=== PATIENT | male | born 1955 | race Caucasian/White ===

== ENCOUNTER 2020-05-22 21:03 | Emergency (ER) | payer OTHER ==
[~2020-05-22] VITALS: Ht 175.3 cm; Wt 149.7 kg
[2020-05-22] MEDS ORDERED: IBUP800 PO (21:16)
[2020-05-22 21:38] LABS: BASOPHILS ABSOLUTE AUTO 0.03 K/mm3 (0.00-0.23); BASOPHILS PERCENT AUTO 1 % (0-2); EOSINOPHILS ABSOLUTE AUTO 0.19 K/mm3 (0.00-0.68); EOSINOPHILS PERCENT AUTO 3 % (0-6); Hematocrit 45.4 % (37.0-53.0); Hemoglobin 15.2 g/dL (13.5-17.5); IMMATURE GRAN ABSOLUTE AUTO 0.01 K/mm3 (0.00-0.10); IMMATURE GRAN PERCENT AUTO 0 % (0-1); LYMPHOCYTES ABSOLUTE AUTO 1.94 K/mm3 (0.84-5.20); LYMPHOCYTES PERCENT AUTO 32 % (21-46); MONOCYTES ABSOLUTE AUTO 0.62 K/mm3 (0.16-1.47); MONOCYTES PERCENT AUTO 10 % (4-13); Mean Corpuscular HGB 30.3 pg (26.0-34.0); Mean Corpuscular HGB Conc 33.5 g/dL (31.5-36.5); Mean Corpuscular Volume 91 fL (80-100); NEUTROPHILS ABSOLUTE AUTO 3.23 K/mm3 (1.96-9.15); NEUTROPHILS PERCENT AUTO 54 % (41-73); Platelet Count 180 K/mm3 (150-400); RDW Coefficient Variation 12.9 % (11.7-14.2); RDW Standard Deviation 42.5 fL (35.1-46.3); Red Blood Cell Count 5.01 M/mm3 (4.30-5.90); White Blood Cell Count 6.02 K/mm3 (4.00-11.30)
[2020-05-22 21:52] LABS: Alanine Aminotransfer (ALT/SGP 18 U/L (12-78); Albumin, Blood 3.7 g/dL (3.4-5.0); Alk Phos 97 U/L (50-136); Anion Gap 7 mmol/L (6-16); Aspartate Aminotrans (AST/SGOT 16 U/L (12-37); Bilirubin, Total 0.5 mg/dL (0.1-1.0); Blood Urea Nitrogen 30 mg/dL (8-24); CO2, Blood 28 mmol/L (21-32); Calcium, Blood 9.2 mg/dL (8.5-10.1); Chloride, Blood 105 mmol/L (98-108); Creatinine, Blood 1.11 mg/dL (0.60-1.20); Globulin, Blood 3.8 g/dL (2.2-4.0); Glomerular Filtration Rate >60 (60-); Glucose, Blood 117 mg/dL (70-99); Potassium, Blood 3.5 mmol/L (3.5-5.5); Sodium, Blood 140 mmol/L (136-145); Total Protein, Blood 7.5 g/dL (6.4-8.2); Troponin I 0.016 ng/mL (0.000-0.040)
== END 2020-05-23 01:20 | disposition home or self-care (01) ==
LOC: ER 21:03
PROVIDERS: Emergency Medicine
DX: R07.9 Chest pain, unspecified (principal); I10 Essential (primary) hypertension; I25.2 Old myocardial infarction; Z86.73 Personal history of transient ischemic attack (TIA), and cerebral infarction without residual deficits
CPT/HCPCS: 71046; 80053; 83880; 84484; 85025; 93005; 93010; 99285-25

== ENCOUNTER 2022-02-03 13:02 | Inpatient (IN) | payer OTHER ==
[~2022-02-03] VITALS: Ht 172.7 cm; Wt 148.8 kg
[~2022-02-03 13:02] MED LIST: IBUP800 PO
[2022-02-03] MEDS ORDERED: AMLO10 PO (13:34)
[2022-02-03] MEDS ORDERED: ACET500 PO (13:34)
[2022-02-03] MEDS ORDERED: ALBU2.5V5 INH (13:34)
[2022-02-03] MEDS ORDERED: ASPI81CH PO (13:35)
[2022-02-03] MEDS ORDERED: ARNUITY ELLIP100 MCG IH (13:36)
[2022-02-03] MEDS ORDERED: GABA300 PO (13:36)
[2022-02-03] MEDS ORDERED: HYDR10 PO (13:37)
[2022-02-03] MEDS ORDERED: HYDCHL25 PO (13:37)
[2022-02-03] MEDS ORDERED: METO50ER PO (13:38)
[2022-02-03] MEDS ORDERED: LISI20 PO (13:38)
[2022-02-03] MEDS ORDERED: ROSU10TA PO (13:38)
[2022-02-03 13:54] LABS: BASOPHILS ABSOLUTE AUTO 0.03 K/mm3 (0.00-0.23); BASOPHILS PERCENT AUTO 1 % (0-2); EOSINOPHILS ABSOLUTE AUTO 0.12 K/mm3 (0.00-0.68); EOSINOPHILS PERCENT AUTO 3 % (0-6); Hematocrit 44.1 % (37.0-53.0); IMMATURE GRAN ABSOLUTE AUTO 0.01 K/mm3 (0.00-0.10); IMMATURE GRAN PERCENT AUTO 0 % (0-1); LYMPHOCYTES ABSOLUTE AUTO 0.75 K/mm3 (0.84-5.20); LYMPHOCYTES PERCENT AUTO 16 % (21-46); MONOCYTES ABSOLUTE AUTO 0.48 K/mm3 (0.16-1.47); MONOCYTES PERCENT AUTO 10 % (4-13); Mean Corpuscular HGB 30.4 pg (26.0-34.0); Mean Corpuscular Volume 90 fL (80-100); Mean Platelet Volume 11.2 fL (9.1-12.4); NEUTROPHILS PERCENT AUTO 71 % (41-73); Platelet Count 169 K/mm3 (150-400); RDW Coefficient Variation 12.7 % (11.7-14.2); RDW Standard Deviation 41.9 fL (35.1-46.3); Red Blood Cell Count 4.93 M/mm3 (4.30-5.90); White Blood Cell Count 4.79 K/mm3 (4.00-11.30)
[2022-02-03 14:00] LABS: Albumin, Blood 3.2 g/dL (3.4-5.0); Albumin/Globulin Ratio 0.8 (0.8-1.8); Bilirubin, Total 0.5 mg/dL (0.1-1.0); Bun/Creatinine Ratio 25.7 (12.0-20.0); Calcium, Blood 8.7 mg/dL (8.5-10.1); Creatinine, Blood 1.09 mg/dL (0.60-1.20); Globulin, Blood 3.8 g/dL (2.2-4.0); Potassium, Blood 4.1 mmol/L (3.5-5.5)
[2022-02-04 03:34] LABS: BASOPHILS ABSOLUTE AUTO 0.02 K/mm3 (0.00-0.23); BASOPHILS PERCENT AUTO 1 % (0-2); EOSINOPHILS PERCENT AUTO 5 % (0-6); Hematocrit 41.9 % (37.0-53.0); Hemoglobin 13.9 g/dL (13.5-17.5); IMMATURE GRAN ABSOLUTE AUTO 0.01 K/mm3 (0.00-0.10); IMMATURE GRAN PERCENT AUTO 0 % (0-1); LYMPHOCYTES ABSOLUTE AUTO 0.86 K/mm3 (0.84-5.20); LYMPHOCYTES PERCENT AUTO 19 % (21-46); MONOCYTES ABSOLUTE AUTO 0.75 K/mm3 (0.16-1.47); MONOCYTES PERCENT AUTO 17 % (4-13); Mean Corpuscular HGB 30.5 pg (26.0-34.0); Mean Corpuscular HGB Conc 33.2 g/dL (31.5-36.5); Mean Corpuscular Volume 92 fL (80-100); Mean Platelet Volume 11.2 fL (9.1-12.4); NEUTROPHILS ABSOLUTE AUTO 2.59 K/mm3 (1.96-9.15); NEUTROPHILS PERCENT AUTO 59 % (41-73); Platelet Count 151 K/mm3 (150-400); RDW Coefficient Variation 12.8 % (11.7-14.2); RDW Standard Deviation 42.8 fL (35.1-46.3); Red Blood Cell Count 4.56 M/mm3 (4.30-5.90); White Blood Cell Count 4.43 K/mm3 (4.00-11.30)
[2022-02-04 03:57] LABS: Anion Gap 6 mmol/L (6-16); Blood Urea Nitrogen 30 mg/dL (8-24); CHOL/HDL RATIO 4.6; CO2, Blood 26 mmol/L (21-32); Calcium, Blood 8.8 mg/dL (8.5-10.1); Chloride, Blood 107 mmol/L (98-108); Cholesterol 128 mg/dL (50-200); Creatinine, Blood 1.07 mg/dL (0.60-1.20); Glomerular Filtration Rate 76 (60-); Glucose, Blood 114 mg/dL (70-99); HDL Cholesterol 28 mg/dL (>39); LDL/HDL RATIO 2.3; Low Density Lipoprotein Chol 63 mg/dL (0-110); Potassium, Blood 3.9 mmol/L (3.5-5.5); Sodium, Blood 139 mmol/L (136-145); Triglycerides 184 mg/dL (30-160); Very Low Density Lipoprot Chol 37 mg/dL (6-32)
[2022-02-04] MEDS ORDERED: ATOR40TA PO (11:01)
[2022-02-04] MEDS ORDERED: CLOP75 PO (11:09)
== END 2022-02-04 11:25 | disposition home or self-care (01) | DRG 247 ==
LOC: ER 13:02 → ICUW 15:33
PROVIDERS: Student in an Organized Health Care Education/Training Program; ADMIT Internal Medicine Cardiovascular Disease
PROC: 027034Z Dilation of Coronary Artery, One Artery with Drug-eluting Intraluminal Device, Percutaneous Approach (ICD-10-PCS; principal; 2022-02-03)
PROC: B2111ZZ Fluoroscopy of Multiple Coronary Arteries using Low Osmolar Contrast (ICD-10-PCS; 2022-02-03)
DX: I21.4 Non-ST elevation (NSTEMI) myocardial infarction (principal); Z68.42 Body mass index [BMI] 45.0-49.9, adult; E78.5 Hyperlipidemia, unspecified; I25.10 Atherosclerotic heart disease of native coronary artery without angina pectoris; I10 Essential (primary) hypertension; E66.01 Morbid (severe) obesity due to excess calories; Z95.5 Presence of coronary angioplasty implant and graft; Z86.73 Personal history of transient ischemic attack (TIA), and cerebral infarction without residual deficits; Z98.890 Other specified postprocedural states; Z79.51 Long term (current) use of inhaled steroids; Z79.82 Long term (current) use of aspirin; Z79.899 Other long term (current) drug therapy
CPT/HCPCS: 37236; 71046; 76937; 80048; 80053; 80061; 83880; 84484; 85025; 85347; 93005; 93010; 93306; 94660; 96374; 99152; 99153; 99285-25; A9270; C1725; C1769; C1874; C1887; C1894; J1644; J2250; J2270; J3010; J7030; J7040; Q9967

== ENCOUNTER 2022-02-09 16:22 | Inpatient (IN) | payer OTHER ==
[~2022-02-09] VITALS: Ht 177.8 cm; Wt 142.1 kg
[~2022-02-09 16:22] MED LIST changes: +ACET500 PO; +ALBU2.5V5 INH; +AMLO10 PO; +ARNUITY ELLIP100 MCG IH; +ASPI81CH PO; +ATOR40TA PO; +CLOP75 PO; +GABA300 PO; +HYDCHL25 PO; +HYDR10 PO; +LISI20 PO; +METO50ER PO; +ROSU10TA PO
[2022-02-09 17:04] LABS: BASOPHILS ABSOLUTE AUTO 0.04 K/mm3 (0.00-0.23); BASOPHILS PERCENT AUTO 0 % (0-2); EOSINOPHILS ABSOLUTE AUTO 0.01 K/mm3 (0.00-0.68); EOSINOPHILS PERCENT AUTO 0 % (0-6); Hematocrit 43.1 % (37.0-53.0); Hemoglobin 14.3 g/dL (13.5-17.5); IMMATURE GRAN ABSOLUTE AUTO 0.49 K/mm3 (0.00-0.10); IMMATURE GRAN PERCENT AUTO 2 % (0-1); LYMPHOCYTES ABSOLUTE AUTO 0.75 K/mm3 (0.84-5.20); LYMPHOCYTES PERCENT AUTO 3 % (21-46); MONOCYTES ABSOLUTE AUTO 1.84 K/mm3 (0.16-1.47); MONOCYTES PERCENT AUTO 7 % (4-13); Mean Corpuscular HGB Conc 33.2 g/dL (31.5-36.5); Mean Corpuscular Volume 90 fL (80-100); Mean Platelet Volume 10.8 fL (9.1-12.4); NEUTROPHILS ABSOLUTE AUTO 23.74 K/mm3 (1.96-9.15); NEUTROPHILS PERCENT AUTO 89 % (41-73); Platelet Count 190 K/mm3 (150-400); RDW Coefficient Variation 12.6 % (11.7-14.2); RDW Standard Deviation 41.6 fL (35.1-46.3); Red Blood Cell Count 4.77 M/mm3 (4.30-5.90); White Blood Cell Count 26.87 K/mm3 (4.00-11.30)
[2022-02-09 17:24] LABS: Albumin, Blood 2.9 g/dL (3.4-5.0); Albumin/Globulin Ratio 0.7 (0.8-1.8); Bilirubin, Total 2.8 mg/dL (0.1-1.0); Bun/Creatinine Ratio 19.9 (12.0-20.0); Calcium, Blood 8.8 mg/dL (8.5-10.1); Creatinine, Blood 1.71 mg/dL (0.60-1.20); Globulin, Blood 4.1 g/dL (2.2-4.0); Potassium, Blood 3.8 mmol/L (3.5-5.5)
[2022-02-09 18:17] LABS: Source, Urine Straight Cath
[2022-02-09 18:20] LABS: Appearance, Urine Cloudy (Clear); Blood, Urine 5+ (Neg); Color, Urine Amber (P-Yellow); Glucose Qualitative, Urine Neg (Neg); Ketones, Urine 1+ (Neg); Leukocyte Esterase, Urine 3+ (Neg); Nitrite, Urine Pos (Neg); Protein, Urine 3+ (Neg); Urobilinogen, Urine 2+ (Normal)
[2022-02-09 18:40] LABS: Bilirubin, Urine 1+ (Neg)
[2022-02-09 18:57] LABS: Red Blood Cells, Urine 50-100 /hpf (0-2); White Blood Cells, Urine 25-50 /hpf (0-5)
[2022-02-09 18:59] LABS: Amorphous Mod (0-Heavy); Bacteria Many /hpf; Squamous Epithelial Cells Rare /hpf (Few)
[2022-02-09 19:03] LABS: Influenza A, PCR NEGATIVE (NEGATIVE); Influenza B, PCR NEGATIVE (NEGATIVE); Resp Syncytial Virus, PCR NEGATIVE (NEGATIVE); SARS-Cov-2 (COVID-19) PCR, MMC NEGATIVE (NEGATIVE)
[2022-02-10 02:03] LABS: BASOPHILS ABSOLUTE AUTO 0.04 K/mm3 (0.00-0.23); BASOPHILS PERCENT AUTO 0 % (0-2); EOSINOPHILS PERCENT AUTO 0 % (0-6); Hematocrit 42.7 % (37.0-53.0); Hemoglobin 14.1 g/dL (13.5-17.5); IMMATURE GRAN ABSOLUTE AUTO 0.25 K/mm3 (0.00-0.10); IMMATURE GRAN PERCENT AUTO 1 % (0-1); LYMPHOCYTES ABSOLUTE AUTO 0.84 K/mm3 (0.84-5.20); LYMPHOCYTES PERCENT AUTO 4 % (21-46); MONOCYTES ABSOLUTE AUTO 1.65 K/mm3 (0.16-1.47); MONOCYTES PERCENT AUTO 7 % (4-13); Mean Corpuscular HGB 30.7 pg (26.0-34.0); Mean Corpuscular Volume 93 fL (80-100); Mean Platelet Volume 10.9 fL (9.1-12.4); NEUTROPHILS ABSOLUTE AUTO 20.19 K/mm3 (1.96-9.15); NEUTROPHILS PERCENT AUTO 88 % (41-73); Platelet Count 159 K/mm3 (150-400); RDW Coefficient Variation 12.8 % (11.7-14.2); RDW Standard Deviation 43.8 fL (35.1-46.3); White Blood Cell Count 22.97 K/mm3 (4.00-11.30)
[2022-02-10 02:19] LABS: Anti-Xa UFH, PHA Monitoring <0.10 IU/mL; International Normalized Ratio 1.42; Prothrombin Time Results 14.6 Sec (9.7-11.5)
[2022-02-10 02:20] LABS: Albumin, Blood 2.6 g/dL (3.4-5.0); Albumin/Globulin Ratio 0.6 (0.8-1.8); Bilirubin, Total 2.6 mg/dL (0.1-1.0); Bun/Creatinine Ratio 20.2 (12.0-20.0); Calcium, Blood 8.4 mg/dL (8.5-10.1); Creatinine, Blood 1.78 mg/dL (0.60-1.20); Globulin, Blood 4.1 g/dL (2.2-4.0); Potassium, Blood 4.1 mmol/L (3.5-5.5); Total Protein, Blood 6.7 g/dL (6.4-8.2)
--- NOTE | 2022-02-10 06:13 | NUR ---
SHIFT SUMMARY Assumed care of pt at 2310. A/Ox4. SBA due to weakness. Reports no pain, CP/pressure. Maintains over 95% on RA, has a cough (for months now, nonproductive) wears CPAP HS. ST low 100's on tele. Strong pulses t/o. 1+ edema BLE. Reports urinary pain, freq, urgency and has dark jose alfredo urine. Uses urinal. Heparin gtt per emar. Received 1L NS and 1L LR. SBP 140's at the beginning, then up into 180-190's. Temperature also up to 103.0. MD notified and orders received. Temp 1.5hrs later 100.3. SBP improved to 140's. Urine output is scant despite 2L being given, bladder scan shows 0ml urine in bladder. Will report to dayshift RN.
--- NOTE | 2022-02-10 17:00 | NUR ---
SHIFT SUMMARY PT A&OX4, VSS/RA/TEMPERATURES WNL/TELE NSR 80S. 2 IVS - HEPARIN INFUSING IN ONE, AND VANCO INFUSING IN THE OTHER PER EMAR, ABRIL PO, VOIDING SMALL AMOUNTS OF CLOUDY FLORIN URINE, STAND PIVOT TO CHAIR, SMALL AMOUNT PO INTAKE TODAY/ENCOURATED FLUIDS INTAKE. PT TRANSFERRED TO ROOM 342 WITH ALL PERSONAL POSSESSIONS INCLUDING HIS CPAP MACHINE FROM HOME AND PHONE; REPORT PROVIDED TO LINNEA GIBBS.
--- NOTE | 2022-02-10 19:34 | NUR ---
PATIENT ARRIVED ON MEDICAL FLOOR AT 1745 THIS SHIFT. PATIENT'S NEW HEPARIN BAG WAS VERIFIED WITH DANIA CATROLL. PATIENT GIVEN URINAL, PULSE OX SET UP AND TELE MONITOR IN PLACE. IV IN LEFT ARM DC'D DUE TO INFILTRATION. REPORT GIVEN TO ONCOMING RN JOSE RAFAEL.
[2022-02-11 02:58] LABS: Bun/Creatinine Ratio 24.4 (12.0-20.0); Calcium, Blood 8.8 mg/dL (8.5-10.1); Creatinine, Blood 2.05 mg/dL (0.60-1.20)
--- NOTE | 2022-02-11 05:25 | NUR ---
MANUFACTURING SCHEDULER SUMMARY ADMITTED WITH SEPSIS/UTI. PT IS FULL CODE. HEPARIN DRIP INFUSING THROUGHOUT THE SHIFT. PT RECEIVED ONE DOSE OF VANCO. MEDICATED X1 WITH TYLENOL FOR HEADACHE SECONDARY TO COUGH AND X1 WITH COUGH SYRUP. HE IS ALERT AND ORIENTED X4, SOMEWHAT IRRITABLE WITH MULTIPLE PEOPLE ENTERING THE ROOM FOR CARE AT THE START OF THE SHIFT. SLEPT ON CPAP WITH NO ISSUES. NO COMPLAINTS OF CHEST PAIN OR SOB.
[2022-02-11 09:52] LABS: Hematocrit 41.2 % (37.0-53.0); Hemoglobin 13.5 g/dL (13.5-17.5); Mean Platelet Volume 11.6 fL (9.1-12.4); Platelet Count 171 K/mm3 (150-400)
--- NOTE | 2022-02-11 16:39 | NUR ---
SHIFT SUMMARY PATIENT IS ALERT AND ORIENTED X4, PLEASANT AND COOPERATIVE WITH CARE. PATIENT IS FRUSTRATED ABOUT STAYING IN THE HOSPITAL SO LONG. PATIENT CALLS APPROPRIATELY. PATIENT GIVEN ABX TODAY. HEPARIN IS INFUSING. PATIENT HAS DARK FLORIN URINE. LR RUNNING AT 125MLS PER HOUR. PATIENT IS A SBA TO THE BATHROOM. CONTINUOUS PULSE OX ON. PATIENT USES CPAP AT NIGHT. NO EVENTS ON TELE. PATIENT MEDICATED X1 WITH PRN COUGH SYRUP. NO ACUTE CHANGES. CALL LIGHT WITHIN REACH. BED IN LOWEST POSITION.
--- NOTE | 2022-02-12 04:28 | NUR ---
PT A/OX4, CALLS APPROPRIATELY TO SPECIFY NEEDS AND IS COOPERATIVE W/CARE. HE CAN BE IRRITABLE AT TIMES EXPRESSING FRUSTRATION W/BEING AWOKEN OFTEN AND THE AMT OF LAB DRAWS HE'S HAD. STAFF PROVIDED SUPPORT AND AGREED TO ATTEMPT TO CLUSTER CARE BEST ABLE. LR INFUSING AND IV ABX RECIEVED T/O NOCTE. HEPARIN GTT CONT'S PER PHARMACY MANAGEMENT AT 25 UN/KG/HR (50 ML/HR). PT SBA TO TOILET AND USES URINAL INDEPENDENTLY. HE TOLERATED CPAP AT HS W/CONT BIOX INTACT. PT ON TELEMETRY IN NSR AT 70'S-80'S BPM. GUAIFENESIN W/CODEINE RECEIVED AT HS PER REQUEST FOR COUGH RELIEF. NO ACUTE CHANGES, VSS/AFEBRILE. WCTM AND REPORT TO DAY RN.
[2022-02-12 08:16] LABS: Bun/Creatinine Ratio 29.4 (12.0-20.0); Calcium, Blood 8.5 mg/dL (8.5-10.1); Creatinine, Blood 1.36 mg/dL (0.60-1.20); Potassium, Blood 3.9 mmol/L (3.5-5.5)
--- NOTE | 2022-02-12 16:38 | NUR ---
SHIFT SUMMARY PT AxOx4. COOPERATIVE WITH CARE. PT RESTING IN BED MOST OF THIS SHIFT. USES CPAP DURING NAPS. HEPARIN DRIP DC'D THIS AM AT APPROX 0900. TELE RUNNING NSR AT 82. PT BLOOD CULTURES CAME BACK POSITIVE FOR GRAM + COCCI CLUSTERS. DR SAN NOTIFIED. ECHOCARDIOGRAM ORDERED. PT DENIES PAIN THIS SHIFT. CURRENT PLAN IS FOR PATIENT TO RECIEVE IV ABX AND REPEAT BLOOD CULTURES. VITALS REVIEWED. PT CURRENTLY RESTING IN BED, WAITING TO GET INTO SHOWER. PT DENIES NEEDS BESIDES SHOWER AT THIS TIME. CALL LIGHT IN REACH.
--- NOTE | 2022-02-13 03:40 | NUR ---
SUMMARY: PT A/OX4, PLEASANT AND COOPERATIVE W/CARE AND CALLS APPROPRIATELY TO SPECIFY NEEDS. HE SLEPT MAJORITY OF SHIFT EXCEPT WHEN UP TO CHANGE PAD TO UNDERWEAR OR TO USE URINAL AD ETTA. BLOOD CULTURES(+) FOR GRAM+ COCCI CLUSTERS, IV ABX BEING RECIEVED PER EMAR, REPEAT CULTURES PENDING. HE REMAINS NSR AT 70'S BPM ON TELEMETRY AND WEAR CPAP AT HS. NO ACUTE CHANGES, VSS/AFEBRILE. WCTM AND REPORT TO DAY RN.
--- NOTE | 2022-02-13 18:54 | NUR ---
SHIFT SUMMARY PT HAS RESTED COMFORTABLY THROUGHOUT SHIFT. EYES CLOSED, RESP EVEN & UNLABORED. PT WILL WEAR HIS CPAP WHEN HE NAPS. NEW PIV STARTED IN HIS R FA BY AARON GIBBS. 2 OTHER PIV'S DC'D. HE IS INDEPENDENT IN THE ROOM FOR RESTROOM USE. WILL OCCASIONALLY USE THE URINAL. VSS.
--- NOTE | 2022-02-14 04:14 | NUR ---
Patient with VSS on RA overnight. VOiding per urinal. IV antbiotics admininistered overnight. Discussed need for night time sleep interuptions with patient. Skin inspection reveals no acute skin injuries.
[2022-02-14 06:21] LABS: Bun/Creatinine Ratio 25.5 (12.0-20.0); Calcium, Blood 8.9 mg/dL (8.5-10.1); Creatinine, Blood 1.1 mg/dL (0.60-1.20); Potassium, Blood 3.8 mmol/L (3.5-5.5)
--- NOTE | 2022-02-14 18:02 | NUR ---
SHIFT SUMMARY PT A&O X4. VSS. CONTINUES WITH IV ANTI-BIOTIC THERAPY ORDERED PER MD. PLAN IS FOR HIM TO GO TO REHAB FOR A FEW MORE WEEKS OF IV ANTI-BIOTICS. IS SCHEDULED FOR A KEYUR IN THE MORNING AND IS NPO AFTER MN.
--- NOTE | 2022-02-14 22:41 | NUR ---
Patient IV site infiltrated at 1999. Attempted to place new site but was unsuccessful. Aimee GIBBS attempted to place site but was unsuccessful. Alber GIBBS called ICU and asked for someone to come place new IV site. At 2199 New IV site was placed and 1999 Oxicillin started. Discussed this with pharmacy to see if I should still give the 0000 dose of Oxicillin. Pharmacy states to skip the 0000 dose of Oxicillin and give the 0400 dose at 0300 to even it back out.
--- NOTE | 2022-02-15 03:30 | NUR ---
Patient with VSS on CPAP overnight. IV access infiltrated and it took an ICU nurse with ultrasound to get him a new site. He now has a powerglide in his JESSICA. Patient voiding per urinal. No acute events overnight.
--- NOTE | 2022-02-15 09:30 | NUR ---
PT TRANSFERED TO FURNACE INSTALLER FOR PROCEDURE @8180
--- NOTE | 2022-02-15 10:10 | NUR ---
BRANDI IS S/P KEYUR IN 207, POST ANESTHESIA RECOVERING WITH KILN MECHANIC RN AT THE BEDSIDE. RT CALLED TO THE BEDSIDE FOR ALBUTEROL TREATMENT ORDERED BY ANESTHESIA. PATIENT TOLERATED WELL.
--- NOTE | 2022-02-15 10:30 | NUR ---
IFRAHN RETURNED TO ROOM 342, SBAR GIVEN TO PRANEETH BALTAZAR. YURIDIAT IS FULLY RECOVERED FROM KEYUR AND POST ANESTHESIA. VVS. PATIENT IS AWAKE, NO PAIN, AND ABLE TO SWALLOW AND BREATH ON OWN ROOM AIR SAT IS 97%. tele monitor in place.
--- NOTE | 2022-02-15 11:00 | NUR ---
PT RETURNED FROM CCTV TECHNICIAN @1040. PT OFFERED ICE CHIPS, TOLERATING WELL.
--- NOTE | 2022-02-15 16:31 | NUR ---
SHIFT SUMMARY- PT INDEPENDANT IN ROOM. PT DIET CHANGED FROM CARDIAC TO REGULER PER DR. JOHNSON @100HR THROUGHOUT SHIFT. PT HAD MULITPLE PROCEDURES TODAY, ALL COMPLETED WITH NO DISTRESS SEEN BY PT. VSS. PT COMPLIANT WITH ALL CARE GIVEN. NO C/O PAIN DURING SHIFT. PT RESTING WITH FAMILY AT BEDSIDE IN CHAIR WITH CALL LIGHT IN REACH.
--- NOTE | 2022-02-16 04:27 | NUR ---
PATIENT WITH VSS ON CPAP OVERNIGHT. VOIDING. SKIN INSPECTION REVEALS NO ACUTE SKIN ISSUES. PATIENT PLEASANT AND COOPERATIVE WITH CARE. NO ACUTE EVENTS OVERNIGHT.
[2022-02-16] MEDS ORDERED: OXACILLIN SODIUM2 G1 IV (14:15)
[2022-02-16] MEDS ORDERED: VISBIOME 112.51 EACH PO (14:16)
[2022-02-16 14:25] LABS: Influenza A, PCR NEGATIVE (NEGATIVE); Influenza B, PCR NEGATIVE (NEGATIVE); Resp Syncytial Virus, PCR NEGATIVE (NEGATIVE); SARS-Cov-2 (COVID-19) PCR, MMC NEGATIVE (NEGATIVE)
--- NOTE | 2022-02-16 16:44 | NUR ---
DISCHARGE SUMMARY PT TO DISCHARGE TO [facility] FOR IV THERAPY CONTINUED FROM HOSPITAL. POWER GLIDE TO REMAIN IN PLACE FOR TRANSFER BETWEEN FACILITIES. PERSONAL ITEMS TRANSPORTED ALONG WITH PT VIA WHEELCHAIR [facility] TELE REMOVED PRIOR TO DISCHARGE. REPORT CALLED TO FACILITY. PACKET SENT ALONG WITH PT TO FACILITY
== END 2022-02-16 16:46 | DRG 871 ==
LOC: ER 16:22 → MEDS 23:04 → PCU 23:04 → MEDS 02-10 17:45
PROVIDERS: Emergency Medicine; Internal Medicine; Student in an Organized Health Care Education/Training Program; ADMIT Internal Medicine
PROC: 3E03329 Introduction of Other Anti-infective into Peripheral Vein, Percutaneous Approach (ICD-10-PCS; principal; 2022-02-09)
PROC: 5A09357 Assistance with Respiratory Ventilation, Less than 24 Consecutive Hours, Continuous Positive Airway Pressure (ICD-10-PCS; 2022-02-12)
DX: A41.01 Sepsis due to Methicillin susceptible Staphylococcus aureus (principal); I21.4 Non-ST elevation (NSTEMI) myocardial infarction; I21.A1 Myocardial infarction type 2; I33.9 Acute and subacute endocarditis, unspecified; N17.9 Acute kidney failure, unspecified; Z68.42 Body mass index [BMI] 45.0-49.9, adult; N39.0 Urinary tract infection, site not specified; E87.2 Acidosis; Z20.822 Contact with and (suspected) exposure to COVID-19; R65.20 Severe sepsis without septic shock; E66.01 Morbid (severe) obesity due to excess calories; R05.9 Cough, unspecified; E78.5 Hyperlipidemia, unspecified; I25.10 Atherosclerotic heart disease of native coronary artery without angina pectoris; I25.2 Old myocardial infarction; I10 Essential (primary) hypertension; Z95.5 Presence of coronary angioplasty implant and graft; Z98.890 Other specified postprocedural states; Z86.73 Personal history of transient ischemic attack (TIA), and cerebral infarction without residual deficits; Z79.02 Long term (current) use of antithrombotics/antiplatelets; Z79.82 Long term (current) use of aspirin; Z79.899 Other long term (current) drug therapy
CPT/HCPCS: 0241U; 36415; 71045; 72129; 72132; 76770; 80048; 80053; 80202; 81001; 83605; 84484; 85014; 85018; 85025; 85049; 85520; 85610; 85730; 87040; 87077; 87086; 87147; 87186; 93005; 93010; 93308; 93312; 93325; 94640; 94660; 94664; 94760; 94762; 96361; 96365; 96366; 96367; 99285-25; A9270; C1751; J0360; J1644; J2543; J2700; J2704; J3370; J7030; J7040; J7060; J7120; Q9967

== ENCOUNTER 2022-02-19 09:10 | Emergency (ER) | payer OTHER ==
[~2022-02-19] VITALS: Ht 170.2 cm; Wt 147.9 kg
[~2022-02-19 09:10] MED LIST changes: +OXACILLIN SODIUM2 G1 IV; +VISBIOME 112.51 EACH PO
== END 2022-02-19 11:46 | disposition home or self-care (01) ==
LOC: ER 09:10
DX: I82.612 Acute embolism and thrombosis of superficial veins of left upper extremity (principal); Z79.82 Long term (current) use of aspirin; I25.2 Old myocardial infarction; E78.5 Hyperlipidemia, unspecified; I10 Essential (primary) hypertension; Z86.73 Personal history of transient ischemic attack (TIA), and cerebral infarction without residual deficits; Z79.899 Other long term (current) drug therapy
CPT/HCPCS: 36569; 93971; C1751; C1769

== ENCOUNTER 2022-08-09 08:17 | Emergency (ER) | payer OTHER ==
[~2022-08-09] VITALS: Ht 172.7 cm; Wt 148.8 kg
[2022-08-09] MEDS ORDERED: Robaxin750 MG PO (12:42)
[2022-08-09] MEDS ORDERED: Percocet 7.5-31 EACH PO (12:42)
[2022-08-10] MEDS ORDERED: Percocet 7.5-31 EACH PO (09:27)
== END 2022-08-09 12:53 | disposition home or self-care (01) ==
LOC: ER 08:17
DX: M54.50 Low back pain, unspecified (principal); I25.2 Old myocardial infarction; I10 Essential (primary) hypertension; E78.5 Hyperlipidemia, unspecified; I25.10 Atherosclerotic heart disease of native coronary artery without angina pectoris; Z79.899 Other long term (current) drug therapy; Z79.82 Long term (current) use of aspirin; Z79.02 Long term (current) use of antithrombotics/antiplatelets; Z86.73 Personal history of transient ischemic attack (TIA), and cerebral infarction without residual deficits; W01.0XXA Fall on same level from slipping, tripping and stumbling without subsequent striking against object, initial encounter
CPT/HCPCS: 72131; A9270; J1100; J1170; J1885

== ENCOUNTER 2023-01-26 09:46 | Inpatient (IN) | payer OTHER ==
[~2023-01-26] VITALS: Ht 172.7 cm; Wt 150.1 kg
[~2023-01-26 09:46] MED LIST changes: +ATOR80 PO; +B-1100 M2 PO; +FOLI1 PO; +HURRICAINE ONE1 EACH MM; +NITR.4SL SL; +PLAVIX75 MG PO; +Percocet 7.5-31 EACH PO; +Robaxin750 MG PO; +XARELTO20 MG PO
[2023-01-26 10:43] LABS: BASOPHILS ABSOLUTE AUTO 0.04 K/mm3 (0.00-0.23); BASOPHILS PERCENT AUTO 0 % (0-2); EOSINOPHILS PERCENT AUTO 0 % (0-6); Hematocrit 42.7 % (37.0-53.0); Hemoglobin 13.5 g/dL (13.5-17.5); IMMATURE GRAN ABSOLUTE AUTO 0.06 K/mm3 (0.00-0.10); IMMATURE GRAN PERCENT AUTO 1 % (0-1); LYMPHOCYTES ABSOLUTE AUTO 0.81 K/mm3 (0.84-5.20); LYMPHOCYTES PERCENT AUTO 6 % (21-46); MONOCYTES ABSOLUTE AUTO 0.85 K/mm3 (0.16-1.47); MONOCYTES PERCENT AUTO 7 % (4-13); Mean Corpuscular HGB 29.9 pg (26.0-34.0); Mean Corpuscular HGB Conc 31.6 g/dL (31.5-36.5); Mean Corpuscular Volume 95 fL (80-100); Mean Platelet Volume 12.4 fL (9.1-12.4); NEUTROPHILS ABSOLUTE AUTO 11.04 K/mm3 (1.96-9.15); NEUTROPHILS PERCENT AUTO 86 % (41-73); Platelet Count 254 K/mm3 (150-400); RDW Standard Deviation 45.3 fL (35.1-46.3); Red Blood Cell Count 4.51 M/mm3 (4.30-5.90)
[2023-01-26 11:03] LABS: Albumin/Globulin Ratio 0.6 (0.8-1.8); Bilirubin, Total 2.1 mg/dL (0.1-1.0); Bun/Creatinine Ratio 24.9 (12.0-20.0); Calcium, Blood 9.2 mg/dL (8.5-10.1); Creatinine, Blood 2.13 mg/dL (0.60-1.20); Globulin, Blood 4.8 g/dL (2.2-4.0); Potassium, Blood 4.6 mmol/L (3.5-5.5); Total Protein, Blood 7.8 g/dL (6.4-8.2)
[2023-01-26 14:35] LABS: Adenovirus Not Detected (NOT DETECT); Bordetella pertussis Not Detected (NOT DETECT); Chlamydophila pneumoniae Not Detected (NOT DETECT); Coronavirus 229E Not Detected (NOT DETECT); Coronavirus HKU1 Not Detected (NOT DETECT); Coronavirus NL63 Not Detected (NOT DETECT); Coronavirus OC43 Not Detected (NOT DETECT); Human Metapneumovirus Not Detected (NOT DETECT); Human Rhinovirus/Enterovirus Not Detected (NOT DETECT); Influenza A/2009-H1 Not Detected (NOT DETECT); Influenza A/H1 Not Detected (NOT DETECT); Influenza A/H3 Not Detected (NOT DETECT); Influenza B Not Detected (NOT DETECT); Mycoplasma pneumoniae Not Detected (NOT DETECT); Parainfluenza Virus 1 Not Detected (NOT DETECT); Parainfluenza Virus 2 Not Detected (NOT DETECT); Parainfluenza Virus 3 Not Detected (NOT DETECT); Parainfluenza Virus 4 Not Detected (NOT DETECT); Respiratory Syncytial Virus Not Detected (NOT DETECT); SARS-Cov-2 (COVID-19), BioFire Not Detected (NOT DETECT)
[2023-01-26 16:09] VITALS: BP 114/98
--- NOTE | 2023-01-26 17:25 | NUR ---
PCU ADMIT / SHIFT SUMMARY PT TRANSFERED TO PCU VIA GURNEY FROM ER @ APPROX 1600. PT IS A&O X4. VSS. SPO2 >92% ON RA. PT DENIES CP AT THIS TIME. AFIB HR 110'S-130'S. PRN IV LOPRESSOR GIVEN PER EMAR FOR HR >130. PT BECOMES SOB WITH STANDING AT BEDSIDE. PT ORIENTED TO ROOM AND CALL LIGHT. PT LYING IN BED IN LOWEST POSITION AND CALL LIGHT IN REACH.
[2023-01-26 21:36] VITALS: BP 101/58
[2023-01-27] VITALS (7 sets, daily range): BP systolic 102–137; BP diastolic 67–94
--- NOTE | 2023-01-27 03:55 | NUR ---
SHIFT SUMMARY AOX4. VSS. TELE AFIB HR 90-118. HS METOPROLOL GIVEN. DENIES CP OR ANY PAIN/DISCOMFORT. REPORTS DYSPNEA @REST, STATES DYSPNEA WORSE c ACTIVITY. E/U RESP. SPO2 >95% ON RA OR CPAP WHILE ASLEEP. OCC PRODUCTIVE COUGH c SM AMOUNT THICK CLEAR/WHITE SPUTUM. DENIES N/V. REPORTS HE HAD 3 LOOSE BM YESTERDAY 01/26, HELD HS STOOL SOFTENERS. HAD ROUGHLY 760ML URINE OUTPUT THIS SHIFT. PT REFUSED AM LABS TODAY, STATES HE WILL ONLY "ALLOW LABS IF HE GETS A POWERGLIDE PLACED." CALL LIGHT IN REACH. PT ABLE TO MAKE NEEDS KNOWN.
[2023-01-27 10:40] LABS: BASOPHILS ABSOLUTE AUTO 0.03 K/mm3 (0.00-0.23); BASOPHILS PERCENT AUTO 0 % (0-2); EOSINOPHILS ABSOLUTE AUTO 0.02 K/mm3 (0.00-0.68); EOSINOPHILS PERCENT AUTO 0 % (0-6); Hematocrit 37.2 % (37.0-53.0); Hemoglobin 12.4 g/dL (13.5-17.5); IMMATURE GRAN ABSOLUTE AUTO 0.04 K/mm3 (0.00-0.10); IMMATURE GRAN PERCENT AUTO 0 % (0-1); LYMPHOCYTES ABSOLUTE AUTO 0.77 K/mm3 (0.84-5.20); LYMPHOCYTES PERCENT AUTO 7 % (21-46); MONOCYTES ABSOLUTE AUTO 0.96 K/mm3 (0.16-1.47); MONOCYTES PERCENT AUTO 9 % (4-13); Mean Corpuscular HGB 30.1 pg (26.0-34.0); Mean Corpuscular HGB Conc 33.3 g/dL (31.5-36.5); Mean Corpuscular Volume 90 fL (80-100); Mean Platelet Volume 12.3 fL (9.1-12.4); NEUTROPHILS ABSOLUTE AUTO 8.87 K/mm3 (1.96-9.15); NEUTROPHILS PERCENT AUTO 83 % (41-73); Platelet Count 286 K/mm3 (150-400); RDW Coefficient Variation 12.7 % (11.7-14.2); RDW Standard Deviation 42.3 fL (35.1-46.3); Red Blood Cell Count 4.12 M/mm3 (4.30-5.90); White Blood Cell Count 10.69 K/mm3 (4.00-11.30)
[2023-01-27 10:50] LABS: Bun/Creatinine Ratio 31.9 (12.0-20.0); Creatinine, Blood 2.29 mg/dL (0.60-1.20); Magnesium, Blood 2.5 mg/dL (1.6-2.4); Potassium, Blood 4.4 mmol/L (3.5-5.5)
--- NOTE | 2023-01-27 17:06 | NUR ---
END OF SHIFT SUMMARY PT IS A&O X4. VSS. SPO2 >92% ON RA. AFIB 90'S-110'S. PT DENIES ANY CP OR SOB AT THIS TIME. PT WITH NO OTHER COMPLAINTS AT THIS TIME. PT SITTING UP IN BED IN LOWEST POSITION AND CALL LIGHT IN REACH.
[2023-01-28 03:42] VITALS: BP 124/78
--- NOTE | 2023-01-28 04:53 | NUR ---
SHIFT SUMMARY PT A&Ox4, CALLS AND COMMUNICATES NEEDS APPROPRIATELY. BP STABLE, AFIB 90-110's, DENIES CP/PRESSURE. SpO2> 92% RA OR CPAP, REPORTS MILD SOB. PT IND IN ROOM, USES URINAL AT BEDSIDE. REPORTS HAVING LOOSE STOOL SINCE ARRIVING TO HOSPITAL, HELD BOWEL CARE. AT APPROXIMATELY 0440, PT REPORTED NUMBNESS ON THE LEFT SIDE OF HIS FACE AND THAT HE HAS HAD TIAs IN PAST AND THAT HE THINKS HE'S HAVING ONE AGAIN. ASSESSED PT, NO S/S OF TIA OTHER THAN PT REPORTING NUMBNESS. NOTIFIED PHYSICIAN, ORDERS PLACED. NO OTHER EVENTS, WILL REPORT TO ONCOMING RN.
[2023-01-28 07:53] VITALS: BP 128/100
[2023-01-28 08:20] LABS: Magnesium, Blood 1.9 mg/dL (1.6-2.4)
[2023-01-28 08:22] LABS: Bun/Creatinine Ratio 40.1 (12.0-20.0); Calcium, Blood 6.8 mg/dL (8.5-10.1); Creatinine, Blood 1.52 mg/dL (0.60-1.20); Potassium, Blood 3.6 mmol/L (3.5-5.5)
[2023-01-28 14:51] VITALS: BP 125/90
--- NOTE | 2023-01-28 17:45 | NUR ---
SHIFT SUMMARY PT A&OX4. SP02>90 %oN RA, home CPAP WHILE SLEEPING. TELEMETRY SHOWS AFIB, HR 90'S-120'S, CURRENTLY 90'S. PT REQUESTED TO DELAY MIDDAY VITALS D/T NAP. USES URINAL TO VOID. MD RAI, MD ROOT IN ROOM TO ASSESS THIS AM. PT C/O OF HEARTBURN. CALL PLACED TO MD RAI W/ ORDERS FOR TUMS. PT UP TO RECLINER MOST OF DAY. STATES IT HELPS HIM BREATH BETTER. LINEN CHANGE DONE. CALL LIGHT IN REACH.
[2023-01-28 20:00] VITALS: BP 129/94
[2023-01-28 23:24] VITALS: BP 111/74
--- NOTE | 2023-01-29 00:29 | NUR ---
REFUSING VS PT ANNOYED/FRUSTRATED THAT STAFF IS CHECKING HIS VS Q4. STATED THAT HE IS REFUSING HIS 0400 VS AND THAT IF HE IS SLEEPING DO NOT GO INTO HIS ROOM AGAIN.
--- NOTE | 2023-01-29 02:26 | NUR ---
NOTIFIED BY NURSE NOT TO GO INTO PT'S ROOM UNLESS THEY CALL. PT SLEEPING SOUNDLY W/CALL LIGHT IN REACH AND URINAL AT BEDSIDE.
[2023-01-29 05:07] VITALS: BP 123/91
--- NOTE | 2023-01-29 05:17 | NUR ---
SHIFT SUMMARY SEE PREVIOUS NOTE. PT A&Ox4, CALLS AND COMMUNICATES NEEDS APPROPRIATELY. BP STABLE, AFIB 80-110's, DENIES CP/PRESSURE. SpO2> 92% RA OR CPAP, REPORTS MILD SOB. PT IND IN ROOM, USES URINAL AT BEDSIDE. REPORTS HAVING LOOSE STOOL SINCE ARRIVING TO HOSPITAL, HELD BOWEL CARE. PT ALLOWED RN TO OBTAIN 0400 VS. NO OTHER EVENTS, WILL REPORT TO ONCOMING RN.
[2023-01-29 07:37] VITALS: BP 123/85
[2023-01-29 07:54] LABS: Albumin, Blood 2.6 g/dL (3.4-5.0); Anion Gap 6 mmol/L (6-16); Blood Urea Nitrogen 67 mg/dL (8-24); CO2, Blood 25 mmol/L (21-32); Calcium, Blood 8.4 mg/dL (8.5-10.1); Chloride, Blood 103 mmol/L (98-108); Creatinine, Blood 1.72 mg/dL (0.60-1.20); Glomerular Filtration Rate 43 (60-); Glucose, Blood 140 mg/dL (70-99); Phosphorus, Blood 3.5 mg/dL (2.5-4.9); Sodium, Blood 134 mmol/L (136-145)
--- NOTE | 2023-01-29 09:31 | NUR ---
ASSUMED CARE: ASSUMED CARE OF PT APPROX 0715. PT A&OX4, ABLE TO MAKE NEEDS KNOWN. SPO2 >90% ON RA, PT USES HOME CPAP WHILE SLEEPING. HR MOSTLY 80-90'S, SBP 123. PT DENIES CP/PRESSURE. NONPRODUCTIVE COUGH PRESENT. PT ABLE TO VOID INDEPENDENTLY WITH URINAL. SITTING UP IN BED EATING BREAKFAST. NO FURTHER NEEDS AT THIS TIME. CALL LIGHT WITHIN REACH.
[2023-01-29 11:23] VITALS: BP 121/91
[2023-01-29 14:09] VITALS: BP 124/87
--- NOTE | 2023-01-29 14:32 | NUR ---
DISCHARGE SUMMARY: PT A&OX4. DISCHARGE PACKET REVIEWED WITH PT. EDUCATION PROVIDED. PERIPHERAL IV AND POWERGLIDE REMOVED WITHOUT DIFFICULTY. HR 90-100'S, SBP 124. NO REPORTS OF CP/PRESSURE. PT DENIES SOB AT REST. PERSISTENT, DRY COUGH PRESENT. PT'S TO BEDSIDE. MARKEL ABURTO TRANSPORTED PT TO PERSONAL VEHICLE IN WHEELCHAIR WITHOUT DIFFICULTY.
== END 2023-01-29 14:11 | disposition home or self-care (01) | DRG 308 ==
LOC: ER 09:46 → PCU 14:37 → ER 14:46 → PCU 14:46 → ER 14:52 → PCU 14:52
PROVIDERS: Emergency Medicine; Family Medicine; ADMIT Internal Medicine
PROC: 5A09357 Assistance with Respiratory Ventilation, Less than 24 Consecutive Hours, Continuous Positive Airway Pressure (ICD-10-PCS; principal; 2023-01-26)
DX: I48.0 Paroxysmal atrial fibrillation (principal); I50.33 Acute on chronic diastolic (congestive) heart failure; I13.0 Hypertensive heart and chronic kidney disease with heart failure and stage 1 through stage 4 chronic kidney disease, or unspecified chronic kidney disease; N17.9 Acute kidney failure, unspecified; Z68.42 Body mass index [BMI] 45.0-49.9, adult; F10.10 Alcohol abuse, uncomplicated; I25.10 Atherosclerotic heart disease of native coronary artery without angina pectoris; N18.2 Chronic kidney disease, stage 2 (mild); G47.33 Obstructive sleep apnea (adult) (pediatric); R05.9 Cough, unspecified; Z20.822 Contact with and (suspected) exposure to COVID-19; E66.9 Obesity, unspecified; E78.5 Hyperlipidemia, unspecified; Z86.73 Personal history of transient ischemic attack (TIA), and cerebral infarction without residual deficits; Z98.890 Other specified postprocedural states; Z79.82 Long term (current) use of aspirin; Z79.899 Other long term (current) drug therapy; I25.2 Old myocardial infarction; Z79.811 Long term (current) use of aromatase inhibitors; Z79.02 Long term (current) use of antithrombotics/antiplatelets; Z95.5 Presence of coronary angioplasty implant and graft; Z91.148 Patient's other noncompliance with medication regimen for other reason; Z79.01 Long term (current) use of anticoagulants; Z99.89 Dependence on other enabling machines and devices
CPT/HCPCS: 0202U; 70450; 71045; 80048; 80053; 80069; 83735; 83880; 84484; 85025; 93005; 93010; 96374; 96375; 99285-25; A9270; C1751; J1940

== ENCOUNTER 2023-08-10 07:10 | Day surgery (SDC) | payer MEDICARE, OTHER ==
[2023-08-10] VITALS (10 sets, daily range): BP systolic 122–169; BP diastolic 75–119
[~2023-08-10] VITALS: Ht 175.3 cm; Wt 160.1 kg
[~2023-08-10 07:10] MED LIST changes: +ELIQUIS5 M2 PO; +FISH OIL 1,0001 EA10 PO; +POTA10T PO; +TORSE20 PO
[2023-08-10] MEDS ORDERED: POTA10T PO (07:56)
[2023-08-10] MEDS ORDERED: LISI20 PO (07:57)
--- NOTE | 2023-08-10 12:29 | NUR ---
PT BACK TO RECOVERY ROOM. PT ALERT AND ORIENTED. PT GIVEN BREAKFAST AND COFFEE. PT SPOUSE IN TO SEE PT. TR BAND TO R WRIST. NO SWELLING OR BLEEDING NOTED.
[2023-08-10] MEDS ORDERED: CLOP75 PO (14:05)
[2023-08-10] MEDS ORDERED: PANT20 PO (14:06)
--- NOTE | 2023-08-10 15:01 | NUR ---
12 CC AIR REMOVED FROM TR BAND. NO BLEEDING OR SWELLING NOTED. PT SITTING BACK, WATCHING TV. DENIES PAIN. VSS.
--- NOTE | 2023-08-10 16:11 | NUR ---
PT DRESSED, NO BLEEDING OR HEMATOMA AT R RADIAL SITE. TR BAND REOMVED AND CLOTH DOT DRESSING PLACED. IV D/C CATHETER INTACT. PT VERBALIZE D/C INSTRUCTIONS. PT SPOUSE ON HER WAY TO GET PT. PT AMBULATES WITH WALKER AND THIS RN TO WAITING ROOM. REFUSES WHEELCHAIR. WAITING FOR SPOUSE.
== END 2023-08-10 16:29 | disposition home or self-care (01) ==
LOC: MHTC 07:10
DX: I25.110 Atherosclerotic heart disease of native coronary artery with unstable angina pectoris (principal); R94.39 Abnormal result of other cardiovascular function study; I25.2 Old myocardial infarction; I10 Essential (primary) hypertension; I48.0 Paroxysmal atrial fibrillation; G47.33 Obstructive sleep apnea (adult) (pediatric); E66.9 Obesity, unspecified; Z79.82 Long term (current) use of aspirin; Z79.899 Other long term (current) drug therapy
CPT/HCPCS: 0715T; 76937; 85347; 92978; 93005; 93010; 93454; 99152; 99153; A9270; C1725; C1753; C1761; C1769; C1874; C1887; C1894; C9600; C9602; J1644; J2250; J3010; J7030; J7050; Q9967

== ENCOUNTER 2024-10-19 10:07 | Emergency (ER) | payer MEDICARE, OTHER ==
[~2024-10-19] VITALS: Ht 175.3 cm; Wt 154.2 kg
[~2024-10-19 10:07] MED LIST changes: +PANT20 PO
[2024-10-19 11:22] LABS: BASOPHILS ABSOLUTE AUTO 0.02 K/mm3 (0.00-0.23); BASOPHILS PERCENT AUTO 0 % (0-2); EOSINOPHILS ABSOLUTE AUTO 0.19 K/mm3 (0.00-0.68); EOSINOPHILS PERCENT AUTO 3 % (0-6); Hematocrit 42.6 % (37.0-53.0); Hemoglobin 14.2 g/dL (13.5-17.5); IMMATURE GRAN ABSOLUTE AUTO 0.01 K/mm3 (0.00-0.10); IMMATURE GRAN PERCENT AUTO 0 % (0-1); LYMPHOCYTES ABSOLUTE AUTO 0.85 K/mm3 (0.84-5.20); LYMPHOCYTES PERCENT AUTO 15 % (21-46); MONOCYTES ABSOLUTE AUTO 0.47 K/mm3 (0.16-1.47); MONOCYTES PERCENT AUTO 8 % (4-13); Mean Corpuscular HGB 31.1 pg (26.0-34.0); Mean Corpuscular HGB Conc 33.3 g/dL (31.5-36.5); Mean Corpuscular Volume 93 fL (80-100); Mean Platelet Volume 10.9 fL (9.1-12.4); NEUTROPHILS ABSOLUTE AUTO 4.32 K/mm3 (1.96-9.15); NEUTROPHILS PERCENT AUTO 74 % (41-73); Platelet Count 173 K/mm3 (150-400); RDW Coefficient Variation 13.2 % (11.7-14.2); RDW Standard Deviation 45.2 fL (35.1-46.3); Red Blood Cell Count 4.56 M/mm3 (4.30-5.90); White Blood Cell Count 5.86 K/mm3 (4.00-11.30)
[2024-10-19 11:30] LABS: Albumin, Blood 3.4 g/dL (3.4-5.0); Albumin/Globulin Ratio 0.9 (0.8-1.8); Bilirubin, Total 0.9 mg/dL (0.1-1.0); Bun/Creatinine Ratio 16.3 (12.0-20.0); Calcium, Blood 9.3 mg/dL (8.5-10.1); Creatinine, Blood 1.66 mg/dL (0.60-1.20); Globulin, Blood 3.9 g/dL (2.2-4.0); Potassium, Blood 4.6 mmol/L (3.5-5.5); Total Protein, Blood 7.3 g/dL (6.4-8.2)
[2024-10-19 13:30] LABS: Source, Urine Clean Catch
[2024-10-19 13:38] LABS: Appearance, Urine Clear (Clear); Bilirubin, Urine Neg (Neg); Blood, Urine Neg (Neg); Color, Urine Yellow (P-Yellow); Glucose Qualitative, Urine Neg (Neg); Ketones, Urine Neg (Neg); Leukocyte Esterase, Urine 1+ (Neg); Nitrite, Urine Neg (Neg); Protein, Urine 2+ (Neg); Urobilinogen, Urine NORM (Normal)
[2024-10-19 13:49] LABS: Bacteria Few /hpf; Red Blood Cells, Urine Not Seen /hpf (0-2); Spermatozoa Mod /hpf; Squamous Epithelial Cells Rare /hpf (Few)
[2024-10-19 14:25] VITALS: BP 150/77
[2024-10-19] MEDS ORDERED: NS 1,000 ML IV SCH (15:30)
[2024-10-19] MEDS ORDERED: Trimethoprim/Sulfamethoxazole DS Tab PO ONE (15:45)
[2024-10-19] MEDS ORDERED: TAMS.4ER PO (15:56)
[2024-10-19] MEDS ORDERED: CEPH500 PO (15:56)
[2024-10-20] MEDS ORDERED: Tamsulosin HCl 0.4 MG Cap PO SCH (09:00)
== END 2024-10-19 16:11 | disposition home or self-care (01) ==
LOC: ER 10:07
PROVIDERS: Physician Assistant
DX: R39.198 Other difficulties with micturition (principal); I10 Essential (primary) hypertension; Z79.82 Long term (current) use of aspirin; Z79.02 Long term (current) use of antithrombotics/antiplatelets; Z79.899 Other long term (current) drug therapy; Z79.01 Long term (current) use of anticoagulants; Z79.2 Long term (current) use of antibiotics; Z79.891 Long term (current) use of opiate analgesic
CPT/HCPCS: 51798; 80053; 81001; 85025; 87086; 99283; J7030